=== PATIENT | female | born 1955 | race Caucasian/White ===

== ENCOUNTER → 2021-08-21 12:58 | Outpatient (CLI) | payer MEDICARE, SELFPAY ==
--- NOTE | ~2021-08-21 | DEXA_ITS ---
Bone Density Report Name: CHARITY MOHR Age: 66 Sex: Female Ethnicity: White Date of : 1955 Indication: postmenopausal; screening for osteoporosis; Referring Provider: UNKNOWN, UNKNOWN Study: Bone densitometry was performed. Exam Date: August 21, 2021 Accession number: [id number] Bone Density: Region BMD T-score Z-score Classification AP Spine (L1-L4) 1.102 0.5 2.5 Normal Femoral Neck (Left) 0.817 -0.3 1.4 Normal Total Hip (Left) 0.948 0.1 1.5 Normal Femoral Neck (Right) 0.874 0.2 1.9 Normal Total Hip (Right) 0.988 0.4 1.8 Normal Total Hip Mean 0.968 0.3 1.7 Normal World Health Organization criteria for BMD impression classify patients as: Normal (T-score at or above -1.0), Osteopenia (T-score between -1.0 and -2.5), or Osteoporosis (T-score at or below -2.5). 10-year Fracture Risk: FRAX not reported because: All T-scores for Spine Total, Hip Total, Femoral Neck at or above -1.0 Clinical Information Provided by Patient: Patient maximum height was 67 Menopause Age: 53 No regular weight bearing exercise Drinks caffeinated beverages Onset of menses at age 10 Number of children 4 Impression: The patient has normal bone mass. Discussion: BONE DENSITY IS ABOVE THE MINIMUM DESIRABLE LEVEL AT ALL SKELETAL SITES TESTED. This patient?s bone mineral density is above the minimum desirable level (T-score -1.0 or better) at all sites measured. The patient should follow a healthful lifestyle (good nutrition with adequate calcium and vitamin D, and appropriate weight-bearing exercise). Follow-Up: Consider repeating this study in 5 years or sooner if there is some new clinical indication. Reported by: [facility] on 08/21/2021 1:50:00 PM. Reviewed, dictated and finalized at location [facility]. [facility]
--- NOTE | ~2021-08-21 | MM_ITS ---
EXAMINATION: MM screening carlos BI w leyla HISTORY: Screening mammogram, family history of breast cancer in her sister. TECHNIQUE: Craniocaudal and mediolateral oblique 3-D tomosynthesis images were obtained and synthetic 2-D images were generated. CAD analysis was submitted and interpreted. COMPARISON: 06/23/2018, 04/22/2017, 11/29/2015 BREAST PARENCHYMAL COMPOSITION: There are scattered areas of fibroglandular density. FINDINGS: There is no evidence of suspicious mass, calcification, or architectural distortion to sugg est malignancy in either breast. There has been no suspicious interval change. IMPRESSION: 1. No mammographic evidence of malignancy. 2. Recommend routine screening mammography in one year. BI-RADS Category 1: Negative Reviewed, dictated and finalized at location A. [facility]
== END ==
DX: Z12.31 Encounter for screening mammogram for malignant neoplasm of breast (principal); Z78.0 Asymptomatic menopausal state
CPT/HCPCS: 77063; 77067; 77080